=== PATIENT | male | born 1945 | race Caucasian/White ===

== ENCOUNTER 2020-12-30 08:24 | Outpatient (CLI) | payer OTHER ==
[2020-12-30 21:21] LABS: SARS-CoV-2 PCR by NAA Not Detected (NotDetected)
== END 2020-12-30 08:25 | disposition home or self-care (01) ==
LOC: CSHLAB 08:24
PROVIDERS: ATTEND Internal Medicine Gastroenterology
DX: Z20.822 Contact with and (suspected) exposure to COVID-19 (principal); Z12.11 Encounter for screening for malignant neoplasm of colon
CPT/HCPCS: 87635; U0003; U0005

== ENCOUNTER 2021-01-04 06:36 | Day surgery (SDC) | payer OTHER ==
[2021-01-01 08:39] VITALS: BMI 19.2
[2021-01-04] MEDS ORDERED: Lidocaine 1% MPF 2 ML VIAL ONE (08:15)
[2021-01-04] MEDS ORDERED: PROPOFOL 80 ML ONE (09:13)
== END 2021-01-04 10:55 | disposition home or self-care (01) ==
LOC: CSHSDC 06:36
PROVIDERS: ATTEND Internal Medicine Gastroenterology
DX: Z12.11 Encounter for screening for malignant neoplasm of colon (principal); K64.9 Unspecified hemorrhoids; D12.0 Benign neoplasm of cecum
CPT/HCPCS: 88305; J2704

== ENCOUNTER 2022-11-30 05:43 | Day surgery (SDC) | payer OTHER ==
[2022-11-28 15:12] VITALS: BMI 19.2
[2022-11-30] MEDS ORDERED: Lidocaine 1% PF 5 ML VIAL ONE (06:49)
[2022-11-30] MEDS ORDERED: PROPOFOL 20 ML ONE (06:49)
[2022-11-30] MEDS ORDERED: PROPOFOL 40 ML ONE (09:22)
== END 2022-11-30 10:04 | disposition home or self-care (01) ==
LOC: CSHSDC 05:43
PROVIDERS: ATTEND Internal Medicine Gastroenterology
PROC: 0D753ZZ Dilation of Esophagus, Percutaneous Approach (ICD-10-PCS; principal; 2022-11-30)
PROC: 0DJD8ZZ Inspection of Lower Intestinal Tract, Via Natural or Artificial Opening Endoscopic (ICD-10-PCS; principal; 2022-11-30)
PROC: 0DB78ZX Excision of Stomach, Pylorus, Via Natural or Artificial Opening Endoscopic, Diagnostic (ICD-10-PCS; principal; 2022-11-30)
DX: K63.5 Polyp of colon (principal); K29.50 Unspecified chronic gastritis without bleeding; K57.30 Diverticulosis of large intestine without perforation or abscess without bleeding; K25.9 Gastric ulcer, unspecified as acute or chronic, without hemorrhage or perforation; K21.9 Gastro-esophageal reflux disease without esophagitis; K64.9 Unspecified hemorrhoids; G47.33 Obstructive sleep apnea (adult) (pediatric); Z79.899 Other long term (current) drug therapy; Z90.79 Acquired absence of other genital organ(s)
CPT/HCPCS: 88305; J2704